=== PATIENT | male | born 1975 | race Caucasian/White ===

== ENCOUNTER 2021-07-15 13:21 | Emergency (ER) | payer SELFPAY ==
[~2021-07-15] VITALS: Ht 165.1 cm; Wt 62.1 kg
[2021-07-15 13:27] VITALS: BP 146/76
--- NOTE | 2021-07-15 14:37 | NUR ---
ATTEMPTED TO CALL PATIENT TO BRING TO ROOM. NO ANSWER AT THIS TIME
--- NOTE | 2021-07-15 14:47 | NUR ---
ATTEMPTED TO CALL PATIENT FOR SECOND TIME TO BRING TO ROOM. NO ANSWER AT THIS TIME.
--- NOTE | 2021-07-15 14:55 | NUR ---
ATTEMPTED TO CALL PATIENT FOR THIRD TIME TO BRING TO ROOM. NO ANSWER AT THIS TIME. PT LWBS. MADE AWARE.
== END 2021-07-15 14:55 | disposition left against medical advice (07) ==
LOC: MED 13:21
DX: R42 Dizziness and giddiness (principal); F10.129 Alcohol abuse with intoxication, unspecified; Z53.21 Procedure and treatment not carried out due to patient leaving prior to being seen by health care provider